=== PATIENT | female | born 1940 ===

== ENCOUNTER 2018-09-15 17:00 | Inpatient (IN) | payer MEDICARE, BC ==
[~2018-09-15] VITALS: Ht 165.1 cm; Wt 55.3 kg
--- NOTE | 2018-09-15 19:01 | NUR ---
REC'D PT FROM [facility]. ADMITTED FOR RIGHT COLON RESECTION ON 09/02/18. PT IS VERY CONFUSED. ALERT TO FIRST NAME ONLY. PT SON REGINE IS POA . WILL BRING COPY OF POA SOON POSSIBLE. PT IS DNR PER POA. CODEWORD IS KATIA. UP WITH ASSIST X 1. INCONT. AT TIMES. PT IS DIABETIC. LAST BM 09/15/18. PT USES WALKER TO AMBULATE. PT HAS MIDLINE INCISION WITH DEDRA. PT HAD 1 FOOT OF COLON REMOVED. DEDRA TO REMOVED 09/21/18. PCP IS DR. LAWS. PHARMACY IS [facility] IN [place].
[2018-09-15] MEDS ORDERED: GLIMEPIRIDE2 MG PO (19:17)
[2018-09-15] MEDS ORDERED: LANTUS SOL100 UNIT/1 SC (19:19)
[2018-09-15] MEDS ORDERED: TRAZODONE HCL150 MG PO (19:23)
[2018-09-15] MEDS ORDERED: HUMALOG 30100 UNITS/ SC (19:29)
[2018-09-15 21:27] VITALS: BP 136/65; BMI 20.3
--- NOTE | 2018-09-15 22:53 | NUR ---
RECEIVED IN DAYROOM. SITTING IN WHEELCHAIR WITH PEERS AT HER SIDE. CALM AND COOPERATIVE WITH CARE AND ASSESSMENT. NO SIGNS OF AGGRESSION. AGITATED AT TIMES. REDIRECT AND REORIENT NEEDED. RESTING IN BED WITH EYES CLOSED AT THIS TIME. CONTINUE PLAN OF CARE.
[2018-09-15 23:36] VITALS: BP 133/62
[2018-09-16 07:04] LABS: BASOPHILS 0.4 % (0-2); EOSINOPHILS 1.7 % (0-7); HEMATOCRIT 37.1 % (36.0-48.0); HEMOGLOBIN 11.9 g/dL (12-16); IMMATURE GRANULOCYTES 0.2 % (0-5); LYMPHOCYTES 22.7 % (15-50); MCH 25.8 pg (26.0-34.0); MCHC 32.1 g/dL (31.0-37.0); MCV 80.5 fL (80.0-100.0); MEAN PLATELET VOLUME 10.2 fL (7.4-10.4); MONOCYTES 7.9 % (2-11); NEUTROPHILS 67.1 % (40-80); PLATELET COUNT 379 10x3/uL (130-400); RBC 4.61 10x6/uL (4.00-5.40); RDW 18.8 % (11.5-14.5); WBC 4.8 10x3/uL (4.8-10.8)
[2018-09-16 07:25] LABS: ALBUMIN 3.2 g/dL (3.4-5.0); ANION GAP 17.7 mmol/L (8-16); BILIRUBIN - TOTAL 0.39 mg/dL (0.2-1.3); CALCIUM 9.4 mg/dL (8.5-10.1); CARBON DIOXIDE 25.5 mmol/L (21.0-32.0); CHOL - HDL RATIO 4.7 ratio (2.3-4.1); CREATININE - SERUM 1.2 mg/dL (0.6-1.3); LDL-HDL RATIO 3.1 ratio (1.5-3.5); POTASSIUM - SERUM 3.2 mmol/L (3.5-5.1); PROTEIN - SERUM 7.6 g/dL (6.4-8.2); THYROID STIMULATING HORMONE 1.69 uIU/mL (0.36-3.74)
[2018-09-16 07:50] VITALS: BP 120/54
[2018-09-16 08:43] VITALS: BMI 20.3
[2018-09-16 09:55] VITALS: Ht 165.1 cm; Wt 55.3 kg
--- NOTE | 2018-09-16 11:00 | NUR ---
REPORT RECEIVED AND CARE ASSUMMED. CALM AND COOPERATIVE WITH CARE AND ASSESSMENT. COMPLIANT WITH MEDICATIONS. FALL PRECAUTIONS MAINTAINED. WILL CONTINUE WITH PLAN OF CARE.
--- NOTE | 2018-09-16 12:00 | NUR ---
REPORT RECEIVED AND CARE ASSUMED. CALM AND COOPERATIVE WITH CARE AND ASSESSMENT. VERY CONFUSED, HAS DIFFICULTY COMMUNICATING WITH STAFF. FALL PRECAUTIONS MAINTAINED. CONTINUE PLAN OF CARE.
[2018-09-16] MEDS ORDERED: TRAZODONE HCL150 MG PO ×2 (12:48→12:51)
--- NOTE | 2018-09-16 18:00 | NUR ---
PATIENT AMBULATED WITH WALKER THW LENGTH OF DAYROOM X 2. SHE DID FAIRLY WELL.
--- NOTE | 2018-09-16 21:05 | NUR ---
RECEIVED IN PATIENT ROOM. RESTING IN BED WITH EYES OPEN. CALM AND COOPERATIVE WITH CARE AND ASSESSMENT. NO SIGNS OF AGGRESSION. REDIRECT AND REORIENT NEEDED. RESTING IN BED WITH EYES CLOSED AT THIS TIME. CONTINUE PLAN OF CARE.
[2018-09-16 22:09] VITALS: BP 110/54
[2018-09-17 06:15] LABS: VITAMIN D 25 HYDROXY 8.3 ng/mL (30.0-100.0)
[2018-09-17 07:28] LABS: RAPID PLASMA REAGIN Non Reactive (Non Reactive)
[2018-09-17 07:49] VITALS: BP 104/68
[2018-09-17 08:20] LABS: FOLATE (FOLIC ACID) - SERUM 13.4 ng/mL (>3.0)
--- NOTE | 2018-09-17 12:06 | NUR ---
VERY AGGITATED,REFUSES FINGER STICK BLOOD SUGAR.ARGUMENTIVE AND CONBATIVE.WILL NOT REDIRECT.ATIVAN 0.5MG AND HALDOL 2MG IM GIVEN PER ORDERS.REFUSED MEDS THIS AM.VERY CONFUSED AND DISORIENTED.WILL CONTINUE WITH PLAN OF CARE,MONITOR FOR CHANGES AND SAFETY.PROPELLS SELF IN WHEELCHAIR,WALKED WITH ASSIST DUE TO UNSTEADY GAIT.OBSERVED TRYING TO GET OUTSIDE DOOR OPEN.
--- NOTE | 2018-09-17 13:00 | NUR ---
HAD GOOD RESPONSE TO ATIVAN AND HALDOL.
--- NOTE | 2018-09-17 14:18 | NUR ---
Nutrition Follow Up: Chart reviewed Diet: ADA AHA PO Intake: 7% meal avg BM: 09/16/18 Labs reviewed - Glucose continues elevated Meds noted Rec changing diet to ADA. Rec consider an appetite stimulant. Will continue to honor food preferences within diet restrictions. RD following.
--- NOTE | 2018-09-17 14:48 | PSY ---
PATIENT NAME:JOANNA SIMS MEDICAL RECORD: [id number] : 44 LOCATION:ANDRÉS Russo1124 ADMISSION DATE: 09/15/18 ACCOUNT: [id number] PSYCHIATRIC EVALUATION DATE OF EVALUATION: 09/16/18 IDENTIFYING DATA: The patient is 78 years old and she is admitted to the hospital on a voluntary basis. CHIEF COMPLAINT: Confusion. HISTORY OF PRESENT ILLNESS: The patient had a colon resection 10 days ago. Since that time, she has had some postoperative confusion. She has been very agitated at times. She has actually been aggressive with the caregivers at the other hospital and they have asked that she be transferred here. On interview, the patient is severely impaired cognitively. She knows her first name, but cannot even tell me her last name. She is not providing anything in the way of useful information and is clearly impaired in a manner that looks consistent with a dementing illness. There is no knowledge of any intraoperative or postoperative event that might have accounted for this, such as stroke or hypoxia, but according to the history that I have gotten she is very different from when she was admitted for surgery 10 days ago. PAST MEDICAL HISTORY: Significant for a recent colon resection secondary to chronic constipation is my understanding rather than related to cancer or an ischemic colon or some other condition, but again I do not have all the records at this point. She also is a diabetic. She is insulin-dependent. PAST PSYCHIATRIC HISTORY: Unknown. The patient does take trazodone, but I am told that is only to assist with sleep consolidation. Apparently, she has not been diagnosed with a dementia in the past. FAMILY HISTORY: Unknown. ALLERGIES: CODEINE. CURRENT MEDICATIONS: Amaryl, insulin, trazodone. SOCIAL HISTORY: The patient is . She does have adult children who are involved with her care. There is no known history of drug or alcohol abuse. Apparently, she did function reasonably well socially and occupationally. MENTAL STATUS EXAMINATION: The patient is awake, alert and oriented to person only. Her mood is euthymic. Her affect is appropriate. Thought processes are circumstantial. Memory, concentration, and abstraction abilities are severely impaired and she denies any intent to harm herself or others as well as overt psychotic symptoms. ASSETS: Supportive family members. LIABILITIES: Limited insight. DIAGNOSTIC IMPRESSION: AXIS I: Vascular dementia. AXIS II: None. AXIS III: Status post colon resection, diabetes. AXIS IV: Moderate. AXIS V: Global assessment of functioning is 30. PLAN: At this time, the patient is admitted to the hospital secondary to confusion and aggressive behavior that is reportedly acute in onset. She is no longer taking medications that would be identified or probable culprits in a delirium. She does not look delirious and this is 10 days after she underwent general anesthesia, so it is difficult to account for this as means anything that was associated with the surgery that might be reversible. Assuming the secondhand information I have is correct, and that this is very new and very different, I am going to presume that given her diabetes that she probably had chronic white matter changes and had some microvascular event that could account for this change. At this point, I am going to continue her on her current medicine and will observe her for aggressive behavior. It is my hope that nothing need be given to address any aggression because it will not occur. I will, however, start her on a cholinesterase inhibitor to address her underlying cognitive impairment. TRANSINT:[id number] Voice Confirmation ID: [id number] DOCUMENT ID: [id number] AVINASH DELCID MD at 1448 CC: [id number] DICTATION DATE: 09/16/18 1617 DOCUMENT EXAMINER: 09/16/182012 ADM IN [facility] [address] [place] [address]
[2018-09-17 17:20] LABS: ANION GAP 16.7 mmol/L (8-16); CALCIUM 9.3 mg/dL (8.5-10.1); CARBON DIOXIDE 26.1 mmol/L (21.0-32.0); CREATININE - SERUM 1.1 mg/dL (0.6-1.3); POTASSIUM - SERUM 3.8 mmol/L (3.5-5.1)
--- NOTE | 2018-09-17 18:43 | NUR ---
REFUSED VITAMIN D .ATE ONLY A FEW BITES AT DINNER.EASILY AGGITATED.
[2018-09-17 20:00] VITALS: BP 105/55
--- NOTE | 2018-09-18 04:37 | NUR ---
B) Patient is alert and oriented to self, difficult to communicate with, defiant at times, I) Administered scheduled medications as ordered, redirected as needed, R) Mediation compliant on the third try P) Continue plan of care.
--- NOTE | 2018-09-18 07:55 | NUR ---
B) The patient is depressed, she does not look at this staff and she does not comply with her assessment. She would not sit up for me to listen to her lungs in the back. When asked if she had pain she shrugged her shoulders. When asked where she was she did not say anything she kept her eyes closed. When asked if she is depressed she did not say anything. I) Provide prescribed meds. R) The patient is stoic and flat at this time, she is not interacting with staff or her peers. P) Continue POC.
[2018-09-18 08:10] VITALS: BP 110/53
[2018-09-18 20:08] VITALS: BP 135/68
--- NOTE | 2018-09-19 02:05 | NUR ---
B) Patient is alert and oriented to self, very confused and defiant at times, I) Administered scheduled medications as ordered, redirected as needed, R) Mediation compliant, resting quietly in bed now, P) Continue plan of care.
[2018-09-19 08:01] VITALS: BP 135/56
--- NOTE | 2018-09-19 10:53 | NUR ---
B) The patient is awake, but she is sleepy this am, she did not eat breakfast, she is not drinking. She is not talking, she opened her eyes on assessment, she did slap at staff after breakfast, but she is sitting in a recliner and resting. I) Provide prescribed meds and encourage her to take her meds, offer her fluids every two hours, offer snacks. R) The patient refuses to take her meds, she just lay her head on the table and would not look up when I offered her meds, she did not hit at me, but she did not move. P) Continue POC.
--- NOTE | 2018-09-19 12:56 | PN ---
PATIENT:JOANNA SIMS MEDICAL RECORD: [id number] LOCATION:ANDRÉS KaranKailyn ADMISSION DATE: 09/15/18 PROGRESS NOTE DATE OF SERVICE: 09/17/2018 SUBJECTIVE: The patient's case was discussed with staff. She has no new complaint. OBJECTIVE: The patient is not eating well. She did sleep reasonably well last night. She has been compliant with her medications. She has pretty limited insight about her situation. ASSESSMENT: No change in diagnoses. PLAN: Brief supportive and educational interventions were made. Long-term prognosis is guarded. I am going to start the patient on Megace to assist with appetite stimulation. TRANSINT:[id number] Voice Confirmation ID: [id number] DOCUMENT ID: [id number] AVINASH DELCID MD at 1256 CC: [id number] DICTATION DATE: 09/17/18 1507 ENGINE MANAGER: 09/17/18 2109 ADM IN [place] [address] [place] [address]
--- NOTE | 2018-09-19 12:56 | PN ---
PATIENT:JOANNA SIMS MEDICAL RECORD: [id number] LOCATION:ANDRÉS Russo112 ADMISSION DATE: 09/15/18 PROGRESS NOTE DATE OF SERVICE: 09/18/2018 SUBJECTIVE: The patient's case was discussed with staff. She has no new complaint. OBJECTIVE: The patient denies intent to harm herself or others. She is clearly quite confused. ASSESSMENT: No change in diagnoses. PLAN: The patient has not been compliant with her medicines and she is not eating. Reasons for this are unknown and she is not giving me answers that are coherent. TRANSINT:[id number] Voice Confirmation ID: [id number] DOCUMENT ID: [id number] AVINASH DELCID MD at 1256 CC: [id number] DICTATION DATE: 09/18/18 164 FLAG SIGNALMAN: 09/18/18 2321 ADM IN [facility] [address] [place] [address]
[2018-09-19 18:29] LABS: BASOPHILS 0.9 % (0-2); EOSINOPHILS 0.7 % (0-7); HEMATOCRIT 37.7 % (36.0-48.0); HEMOGLOBIN 12.2 g/dL (12-16); LYMPHOCYTES 28.3 % (15-50); MCH 26.2 pg (26.0-34.0); MCHC 32.4 g/dL (31.0-37.0); MCV 80.9 fL (80.0-100.0); MEAN PLATELET VOLUME 9.9 fL (7.4-10.4); MONOCYTES 10.1 % (2-11); PLATELET COUNT 393 10x3/uL (130-400); RBC 4.66 10x6/uL (4.00-5.40); RDW 19.4 % (11.5-14.5); WBC 5.8 10x3/uL (4.8-10.8)
[2018-09-19 18:51] LABS: ALBUMIN 3.4 g/dL (3.4-5.0); ANION GAP 18.1 mmol/L (8-16); BILIRUBIN - TOTAL 0.52 mg/dL (0.2-1.3); CALCIUM 9.5 mg/dL (8.5-10.1); CARBON DIOXIDE 24.9 mmol/L (21.0-32.0); PROTEIN - SERUM 7.2 g/dL (6.4-8.2); THYROID STIMULATING HORMONE 0.54 uIU/mL (0.36-3.74)
--- NOTE | 2018-09-19 21:38 | NUR ---
PATIENT IS QUIET, STAYS TO HERSELF, COMPLIANT WITH MEDS, NO ADVERSE REACTION, WILL FOLLOW POC
[2018-09-20 04:45] VITALS: BP 130/73
--- NOTE | 2018-09-20 07:30 | NUR ---
REC'D PT IN HALLWAY WITH PEERS SITTING IN W/C. AWAKE AND ALERT TO PEROSN ONLY. PT IS CONFUSED. CALM AND COOPERATIVE WITH ASSESSMENT. REDIRECT AND REORIENT NEEDED. NO AGGRESSION NOTED. PRESCRIBED MEDS PROVIDED. NON MED COMPLIANT. FALL PRECAUTIONS IN PLACE. WILL CONTINUE TO MONITOR Q 15 MINUTES FOR SAFETY. WILL CPOC.
[2018-09-20 08:18] VITALS: BP 108/65
--- NOTE | 2018-09-20 12:21 | PN ---
PATIENT:JOANNA SIMS MEDICAL RECORD: [id number] LOCATION:ANDRÉS Russo112 ADMISSION DATE: 09/15/18 PROGRESS NOTE DATE OF SERVICE: 09/19/2018 SUBJECTIVE: The patient's case was discussed with staff. She has no new complaint. OBJECTIVE: The patient is minimally interactive and does not want to talk to me. She is in a reclining chair in the day room. I approach her from her left side, she turns her head to the right and will not answer me. I got to the other side of the chair and tried to speak with her and she does the same thing. She did shake her head or use yes or no to a couple of questions and then told me to leave her alone. I did not leave her alone and still tried to engage her in conversation, which she would not engage with me and so I did end the interview. ASSESSMENT: No change in diagnoses. PLAN: The patient is not eating, not drinking and not taking her medicines consistently. I do not know why, because she will not talk to me. I am going to order some baseline labs to check or any metabolic abnormalities that might be developing because of her restricted intake and we will make another attempt to engage her tomorrow. TRANSINT:[id number] Voice Confirmation ID: [id number] DOCUMENT ID: [id number] AVINASH DELCID MD at 1221 CC: [id number] DICTATION DATE: 09/19/18 1332 SUPERVISOR INTELLIGENCE ANALYST: 09/19/18 1350 ADM IN [place] [address] [place] [address]
--- NOTE | 2018-09-20 12:44 | PN ---
PATIENT:JOANNA SIMS MEDICAL RECORD: [id number] LOCATION:ANDRÉS Russo112 ADMISSION DATE: 09/15/18 PROGRESS NOTE DATE OF SERVICE: 09/20/2018 SUBJECTIVE: The patient's case was discussed with staff. She has no new complaint. OBJECTIVE: The patient is in good behavioral control, but very withdrawn. She is not interacting with me hardly at all and will not interact with me at all yesterday. I think she may have a fair amount of confusion going on, but despite that the attitude of resistance is really hard for me to understand and breakthrough. TRANSINT:[id number] Voice Confirmation ID: [id number] DOCUMENT ID: [id number] AVINASH DELCID MD at 1244 CC: [id number] DICTATION DATE: 09/20/18 1237 DATA INTEGRATION ARCHITECT: 09/20/18 1242 ADM IN [place] [id number] [place] [address]
[2018-09-20 21:16] VITALS: BP 130/60
--- NOTE | 2018-09-20 22:31 | NUR ---
PATIENT IS CONFUSED, QUIET STAYS TO HERSELF, REFUSED ORAL MEDICATION TONIGHT BUT TOOK HER INSULIN, WILL FOLLOW POC
[2018-09-21 08:00] VITALS: BP 132/71
--- NOTE | 2018-09-21 11:00 | NUR ---
PATIENT IS ALERT AND ORIENTED TO SELF ONLY, VERY CONFUSED AND DIFFICULT TO REDIRECT. CALM AND COOPERATIVE WITH CARE AND ASSESSMENT. NON COMPLIANT WITH MEDICATIONS. WILL CONTINUE PLAN OF CARE.
[2018-09-21 20:06] VITALS: BP 119/77
--- NOTE | 2018-09-21 21:55 | NUR ---
21 DERDA TO MIDLINE ABDOMINAL INCISION REMOVED. DEDRA INTACT. INCISION LINE APROXIMATED. NO SIGNS OF INFECTION.
--- NOTE | 2018-09-22 00:11 | NUR ---
RECEIVED IN DAYROOM. SITTING ON COUCH SOCIALZING WITH PEERS. CALM AND COOPERATIVE WITH CARE AND ASSESSMENT. NO SIGNS OF AGGRESSION. REDIRECT AND REORIENT NEEDED. RESTING IN BED WITH EYES CLOSED AT THIS TIME. CONTINUE PLAN OF CARE.
[2018-09-22 07:48] VITALS: BP 111/67
--- NOTE | 2018-09-22 10:49 | NUR ---
Nutrition Follow Up: Chart reviewed. Noted pt is refusing meals. Diet: ADA AHA PO Intake: 2% meal avg BM: 09/22/18 No new wt to assess Labs reviewed Meds noted including Megace Pt continues not meeting est nutritional needs. Will change diet to regular to encourage po intake. Rec consider PEG placement. Will honor food preferences and provide supplements prn. RD following.
--- NOTE | 2018-09-22 15:21 | PN ---
PATIENT:JOANNA SIMS MEDICAL RECORD: [id number] LOCATION:ANDRÉS Russo112 ADMISSION DATE: 09/15/18 PROGRESS NOTE DATE OF SERVICE: 09/21/2018 SUBJECTIVE: The patient's case was discussed with staff. She has no new complaint. OBJECTIVE: The patient is only intermittently compliant with medications. She will not or cannot explain why. She is not eating or drinking very well. ASSESSMENT: No change in diagnoses. PLAN: The patient's dementia is advanced. Her prognosis is guarded. TRANSINT:[id number] Voice Confirmation ID: [id number] DOCUMENT ID: [id number] AVINASH DELCID MD at 1521 CC: [id number] DICTATION DATE: 09/21/18 1615 SECRETARY: 09/21/18 1713 ADM IN [place] [id number] [place] [address]
--- NOTE | 2018-09-22 16:26 | NUR ---
PATIENT IS AWAKE AND ALERT TO SELF ONLY. SHE DOES HAVE A SMILE ON HER FACE THIS MORNING. CALM AND COOPERATIVE WITH CARE AND ASSESSMENT. REDIRECT AND REORIENT NEEDED. FALL PRECAUTIONS MAINATINED. CONTINUE PLAN OF CARE.
[2018-09-22 19:34] VITALS: BP 120/71
--- NOTE | 2018-09-22 21:35 | NUR ---
RECEIVED IN DINING ROOM. SITTING IN CHAIR AND SOCIALIZING WITH PEERS. CALM AND COOPERATIVE WITH CARE AND ASSESSMENT. NO SIGNS OF AGGRESSION. REFUSED TO TAKE ALL PM MEDICATIONS AND REFUSED FSBS. REDIRECT AND REORIENT NEEDED. ENCOURAGE MEDICATION COMPLIANCE. PATIENT CONTINUE TO REFUSED MEDS AND CONTINUED TO SIT AND SOCIALIZE WITH PEERS. CONTINUE PLAN OF CARE.
--- NOTE | 2018-09-22 22:06 | NUR ---
IN AND OUT CATH PERFORMED. ONLY TWO DROPS OF URINE RETURN.
[2018-09-23 09:47] VITALS: BP 112/68
--- NOTE | 2018-09-23 15:56 | PN ---
PATIENT:JOANNA SIMS MEDICAL RECORD: [id number] LOCATION:ANDRÉS RussoKailyn ADMISSION DATE: 09/15/18 PROGRESS NOTE DATE OF SERVICE: 09/22/2018 SUBJECTIVE: The patient's case was discussed with staff. She has no new complaint. OBJECTIVE: The patient is in good behavioral control with limited insight about her condition. She does tolerate her medicines well. She continues to be quite confused. She is not eating. She only intermittently takes her medicines, but when she does as mentioned, she tolerates them adequately. TRANSINT:[id number] Voice Confirmation ID: [id number] DOCUMENT ID: [id number] AVINASH DELCID MD at 1556 CC: [id number] DICTATION DATE: 09/22/18 1532 WATERMELON HARVESTING SUPERVISOR: 09/22/18 2216 ADM IN [place] [id number] [place] [address]
[2018-09-23 19:33] LABS: ANION GAP 23.8 mmol/L (8-16); CALCIUM 9.1 mg/dL (8.5-10.1); POTASSIUM - SERUM 4.8 mmol/L (3.5-5.1)
[2018-09-23 22:07] VITALS: BP 110/54
--- NOTE | 2018-09-23 22:38 | NUR ---
RECEIVED IN PATIENT ROOM. RESTING IN BED WITH EYES CLOSED. RESISTIVE WITH CARE AT TIMES. COOPERATIVE WITH ASSESSMENT. REFUESED ALL PM MEDICATIONS AND FSBS. REDIRECT AND REORIENT NEEDED. RESTING IN BED WITH EYES CLOSED AT THIS TIME. CONTINUE PLAN OF CARE.
[2018-09-24 09:25] VITALS: BP 92/59
--- NOTE | 2018-09-24 14:00 | PN ---
PATIENT:JOANNA SIMS MEDICAL RECORD: [id number] LOCATION:ANDRÉS HenaoBetyKailyn ADMISSION DATE: 09/15/18 PROGRESS NOTE DATE OF SERVICE: 09/23/2018 SUBJECTIVE: The patient's case was discussed with staff. She has no new complaint. OBJECTIVE: The patient denies intent to harm herself or others. She is tolerating her medicines well. ASSESSMENT: No change in diagnoses. PLAN: The patient will have her Effexor increased to 100 mg daily. Her long-term prognosis is again guarded and will be largely contingent upon her following through with outpatient treatment recommendations. At this point, she still is not eating adequately, but is taking the Megace and hopefully that will stimulate her appetite. TRANSINT:[id number] Voice Confirmation ID: [id number] DOCUMENT ID: [id number] AVINASH DELCID MD at 1400 CC: [id number] DICTATION DATE: 09/23/18 1617 AIRCRAFT DESIGN ENGINEER: 09/23/18 2230 ADM IN [place] [id number] [place] [address]
--- NOTE | 2018-09-24 15:47 | NUR ---
MARIJA MET WITH PT'S SONS, REGINE AND ABIDA, TO DISCUSS DISCHARGE PLANNING NEEDS AND DISEASE PROGRESSION. REGINE AND BELLE VOICED UNDERSTANDING OF PT'S CONDITION AND DISCHARGE DECISION IS TO SEND PT TO REHAB.
--- NOTE | 2018-09-24 18:00 | NUR ---
REFUSED MEDS THIS AM.CONSUMED ONLY A FEW BITES OF BREAKFAST AND LUNCH.DID HOWEVER EAT A LITTLE MORE AT DINNER BUT STILL DID NOT EAT MUCH.MOOD SEEMED TO BE BETTER THIS EVENING,DID NOT SEEM EASILY AGGITATED.TRIES TO COMMUNICATE VERBALLY BUT HAS TROUBLE VOICEING A COMPLETE THOUGHT.WAS ABLE TO SAY "I AM SO LONELY".ENCOURAGEMENT GIVEN.WILL CONTINUE WITH PLAN OF CARE,MONITOR FOR CHANGES AND SAFETY.
[2018-09-24 20:36] VITALS: BP 95/45
--- NOTE | 2018-09-25 01:39 | NUR ---
B) Patient is alert and oriented to self, talks in wordsalad at times, very confused and unaware. I) Administered scheduled medications whole after several tries, monitored FSBS R) Mediation compliant this shift, P) Continue plan of care.
--- NOTE | 2018-09-25 07:43 | NUR ---
B) The patient is awake and alert, she is oriented to self only. She is not showing any aggression this morning. I) Provide prescribed meds. R) The patient is calm and watchful. P) Continue POC.
[2018-09-25 09:20] VITALS: BP 111/57
--- NOTE | 2018-09-25 17:15 | PN ---
PATIENT:JOANNA SIMS MEDICAL RECORD: [id number] LOCATION:ANDRÉS Russo112 ADMISSION DATE: 09/15/18 PROGRESS NOTE DATE OF SERVICE: 09/24/2018 SUBJECTIVE: The patient's case was discussed with staff. She has no new complaint. OBJECTIVE: The patient denies intent to harm herself or others. She does tolerate her medicines well. Eye contact is fair. ASSESSMENT: No change in diagnoses. PLAN: Current medicines have been reviewed. The patient is still not eating adequately. She is only intermittently compliant with medications. TRANSINT:[id number] Voice Confirmation ID: [id number] DOCUMENT ID: [id number] AVINASH DELCID MD at 1715 CC: [id number] DICTATION DATE: 09/24/18 1421 FOUNDER / CEO: 09/24/18 1844 ADM IN [facility] [address] [place] [address]
[2018-09-25 19:31] VITALS: BP 100/50
--- NOTE | 2018-09-25 19:48 | NUR ---
PATIENT IS VERY CONFUSED, NOT ABLE TO CARRY ON A CONVERSATION, POOR EYE CONTACT, VERY BLUNTED AFFECT, SPOKE TO PATIENT AND CALLED OUT, "MS. SIMS, RAISE YOUR HAND" AND IT TOOK A MOMENT TO FOLLOW MY VOICE AND SHE PUT HER HANDS TOGETHER AND HELD EYE CONTACT MOMEMTARILY. COMPLIANT WITH MEDS. NO ADVERSE REACTION NOTED. WILL FOLLOW POC
[2018-09-26 08:12] VITALS: BP 107/60
--- NOTE | 2018-09-26 11:27 | NUR ---
B) The patient is awake, she fed herself at breakfast, she ate better by doing that and she drank all of her milk. Her abdominal incision is healing well. She remains very confused. She has not shown any aggression today. I) Provide prescribed meds. Approach in a calm manner. R) The patient did take her meds crushed in orange juice. P) Continue POC.
--- NOTE | 2018-09-26 12:03 | PN ---
PATIENT:JOANNA SIMS MEDICAL RECORD: [id number] LOCATION:ANDRÉS Russo112 ADMISSION DATE: 09/15/18 PROGRESS NOTE DATE OF SERVICE: 09/25/2018 SUBJECTIVE: The patient's case was discussed with staff. She has no new complaint. OBJECTIVE: The patient denies an intent to harm herself or others. She has started taking her medicines and has done so at 2 scheduled medication administration times consecutively. She is also eating a little better. I am very much encouraged by this development and will continue to monitor her and hopefully will be able to assist her in a more realistic way, now that she is compliant with medications. TRANSINT:[id number] Voice Confirmation ID: [id number] DOCUMENT ID: [id number] AVINASH DELCID MD at 1203 CC: [id number] DICTATION DATE: 09/25/18 1738 MANAGER SWITCH: 09/25/18 2154 ADM IN [place] [address] [place] [address]
[2018-09-26 20:22] VITALS: BP 136/68
[2018-09-27 07:00] VITALS: BP 112/67
--- NOTE | 2018-09-27 18:23 | NUR ---
VERY CONFUSED AND DISORIENTED.UNABLE TO TELL NURSE HER NAME WHEN ASKED.REFUSED BREAKFAST,LUNCH ,AND MEDS.ATE A FEW BITES AT DINNER.DIFFICULT TO REDIRECT.WILL CONTINUE WITH PLAN OF CARE,MONITOR FOR CHANGES AND SAFETY.
[2018-09-27 19:26] VITALS: BP 130/76
--- NOTE | 2018-09-27 21:41 | NUR ---
PATIENT IS VERY CONFUSED, HAVING A HARD TIME FORMING WORDS, POOR EYE CONTACT, COMPLIANT WITH MEDS ABOUT 25% OF THE TIME. PATIENT NEEDS MAXIMUM ASSISTANCE WITH ADL'S. WILL FOLLOW POC
[2018-09-28 07:00] VITALS: BP 105/75
--- NOTE | 2018-09-28 07:30 | NUR ---
REC'D PT IN HALLWAY SITTING IN RECLINING ROOM. AWAKE AND ALERT TO PERSON ONLY. CALM AND COOPERATIVE WITH ASSESSMENT. REDIRECT AND REORIENT NEEDED. PRESCRIBED MEDS PROVIDED. MED COMPLIANT. FALL PRECAUTIONS IN PLACE. NO AGGRESSION NOTED. PT STILL NOT EATING WELL. ENCOURAGED PER STAFF. FALL PRECAUTIONS IN PLACE. WILL CONTINUE TO MONITOR Q 15 MINUTES FOR SAFETY. WILL CPOC.
--- NOTE | 2018-09-28 14:45 | PN ---
PATIENT:JOANNA SMIS MEDICAL RECORD: [id number] LOCATION:SHARONDAJackie Russo112 ADMISSION DATE: 09/15/18 PROGRESS NOTE DATE OF SERVICE: 09/26/2018 SUBJECTIVE: The patient's case was discussed with staff. She has no new complaint. OBJECTIVE: The patient is in good behavioral control. She has poor insight about her situation. ASSESSMENT: No change in diagnoses. PLAN: Current medicines have been reviewed. Her Effexor will be maintained at this dose. She does look less depressed. She is certainly sleeping adequately. Unfortunately, her appetite is not improving. She has been prescribed Megace. It just simply has not been effective yet. TRANSINT:[id number] Voice Confirmation ID: [id number] DOCUMENT ID: [id number] AVINASH DELCID MD at 1445 CC: [id number] DICTATION DATE: 09/26/18 1315 DANCING TEACHER: 09/27/18 0006 ADM IN [facility] [address] [place] [address]
--- NOTE | 2018-09-28 14:45 | PN ---
PATIENT:JOANNA SIMS MEDICAL RECORD: [id number] LOCATION:ANDRÉS Russo112 ADMISSION DATE: 09/15/18 PROGRESS NOTE DATE OF SERVICE: 09/27/2018 SUBJECTIVE: The patient's case was discussed with staff. She has no new complaint. OBJECTIVE: The patient is in good behavioral control with limited insight about her condition. She tolerates her medicines well. ASSESSMENT: No change in diagnoses. PLAN: Brief supportive and educational interventions were made. Long-term prognosis is guarded. TRANSINT:[id number] Voice Confirmation ID: [id number] DOCUMENT ID: [id number] AVINASH DELCID MD at 1445 CC: [id number] DICTATION DATE: 09/27/18 1233 WORKING SECOND HAND: 09/27/18 1515 ADM IN [place] [id number]
[2018-09-28 21:16] VITALS: BP 106/48
--- NOTE | 2018-09-29 00:04 | NUR ---
RECEIVED IN PATIENT ROOM. RESTING IN BED WITH EYES CLOSED. RESPONDS TO VOICE. CALM AND COOPERATIVE WITH CARE AND ASSESSMENT. NO SIGNS OF AGGRESSION. REDIRECT AND REORIENT NEEDED. RESTING IN BED WITH EYES CLOSED AT THIS TIME. CONTINUE PLAN OF CARE.
[2018-09-29 07:00] VITALS: BP 135/81
--- NOTE | 2018-09-29 11:00 | NUR ---
REC'D PT IN HALLWAY SITTING IN RECLINING CHAIR. CALM AND COOPERATIVE WITH ASSESSMENT. PRESCRIBED MEDS PROVIDED. PT IS NONCOMPLIANT WITH MEDS. REDIRECT AND REORIENT NEEDED. PT REFUSES ALL MEDS AND B/S X 3. PT REFUSES TO FEED HERSELF OR LET STAFF ASSIST WITH FEEDING. FALL PRECAUTIONS IN PLACE. WILL CONTINUE TO MONITOR Q 15 MINUTES FOR SAFETY. WILL CPOC.
--- NOTE | 2018-09-29 13:42 | NUR ---
Pt is on a regular diet no conc sweets with 0-20% intake x3 days Pt is not eating or drinking Ensure today and is refusing BG checks Pt is on [employer] Son has tried to bring food up to the hospital and pt continues not to eat much ~3lb weight loss since admit RD following
--- NOTE | 2018-09-29 15:38 | PN ---
PATIENT:JOANNA SIMS MEDICAL RECORD: [id number] LOCATION:[facility] ADMISSION DATE: 09/15/18 PROGRESS NOTE DATE OF SERVICE: 09/28/2018 SUBJECTIVE: The patient's case was discussed with staff. She has no new complaint. OBJECTIVE: The patient denies intent to harm herself or others. She is tolerating her medicines well. ASSESSMENT: No change in diagnoses. PLAN: Brief supportive and educational interventions were made. Long-term prognosis is guarded. TRANSINT:[id number] Voice Confirmation ID: [id number] DOCUMENT ID: [id number] AVINASH DELCID MD at 1538 CC: [id number] DICTATION DATE: 09/28/18 1459 AUTOMATIC DRILL OPERATOR: 09/28/18 1857 ADM IN [place] [id number] [place] [address]
[2018-09-29 21:34] VITALS: BP 110/56
--- NOTE | 2018-09-29 23:55 | NUR ---
RECEIVED IN PATIENT ROOM. RESTING IN BED WITH EYES CLOSED. RESPONDS TO VOICE. CALM AND COOPERATIVE WITH CARE AND ASSESSMENT REFUSED PM MEDICATIONS AND FSBS. REDIRECT AND REORIENT NEEDED. RESTING IN BED WITH EYES CLOSED AT THIS TIME. CONTINUE PLAN OF CARE.
--- NOTE | 2018-09-30 08:00 | NUR ---
REC'D PT IN HALLWAY SITTING IN RECLINING CHAIR. AWAKE AND ALERT TO PERSON ONLY. PT IS VERY CONFUSED. PT CONT. TO REFUSE ALL MEDS AND GLUCOSE MONITORING. PT EDUCATED ON THE IMPORTANCE OF TAKING MEDS AND MONITORING BLOOD GLUCOSE LEVELS. PT WAS CALM AND COOPERATIVE WITH ASSESSMENT. PRESCRIBED MEDS PROVIDED. PT IS NONCOMPLIANT WITH MEDS. WILL CONTINUE TO MONITOR Q 15 MINUTES FOR SAFETY. CHELSEY VELÁSQUEZOC.
[2018-09-30 08:23] VITALS: BP 125/72
--- NOTE | 2018-09-30 13:01 | PN ---
PATIENT:JOANNA SIMS MEDICAL RECORD: [id number] LOCATION:[facility] ADMISSION DATE: 09/15/18 PROGRESS NOTE DATE OF SERVICE: 09/29/2018 SUBJECTIVE: The patient's case was discussed with staff. She has no new complaint. OBJECTIVE: The patient is not eating or drinking adequately. She is not taking her medicines consistently. She is not able to explain this, the reasons for it are uncertain. Her condition is grave. Her dementia is advanced. She does not begin eating or drinking consistently. Obviously, she is going to have a bad outcome very soon. TRANSINT:[id number] Voice Confirmation ID: [id number] DOCUMENT ID: [id number] AVINASH DELCID MD at 1301 CC: [id number] DICTATION DATE: 09/29/18 1614 COLOR FINISHER: 09/29/18 1718 ADM IN [facility] [address] [place] [address]
[2018-09-30 19:50] VITALS: BP 138/73
--- NOTE | 2018-10-01 00:35 | NUR ---
B) patient is alert and oriented to self, very confused and talks in wordsalad, difficult to redirect and communicate with her. I) offerred scheduled medications several times, monitored for safety, monitored FSBS, R) Refused all PO HS medications, allowed FSBS and insulin shots, P) Continue plan of care.
--- NOTE | 2018-10-01 13:03 | PN ---
PATIENT:JOANNA SIMS MEDICAL RECORD: [id number] LOCATION:[facility] ADMISSION DATE: 09/15/18 PROGRESS NOTE DATE OF SERVICE: 09/30/2018 SUBJECTIVE: The patient's case was discussed with staff. She has no new complaint. OBJECTIVE: The patient is in good behavioral control with limited insight about her condition. She tolerates her medicines well. ASSESSMENT: No change in diagnoses. PLAN: Brief supportive and educational interventions were made. The patient will be maintained on current medicines, which have been reviewed. Her condition is grave considering her very limited oral intake. It would appear that we are approaching the point when it is going to be a referral to hospice if something has not changed. TRANSINT:[id number] Voice Confirmation ID: [id number] DOCUMENT ID: [id number] AVINASH DELCID MD at 1303 CC: [id number] DICTATION DATE: 09/30/18 1514 BUSINESS ANALYSIS ANALYST: 10/01/18 0010 ADM IN [place] [id number] [place] [address]
[2018-10-01] MEDS ORDERED: DESERYL PO (15:44)
[2018-10-01] MEDS ORDERED: EFFEXOR50 MG PO (15:45)
[2018-10-01] MEDS ORDERED: Vitamin D PO (15:45)
[2018-10-01] MEDS ORDERED: MEGACE40 MG PO (15:45)
[2018-10-01 19:56] VITALS: BP 124/96
--- NOTE | 2018-10-02 04:17 | NUR ---
B) patient is alert and oriented to self, very confused and disoriented, talks in wordsalad, I) Administered scheduled medications as ordered, monitored for safety R) Mediation compliant with medication crushed in apple sauce and a lot of patient tries, P) Continue plan of care.
[2018-10-02 09:48] VITALS: BP 123/68
[2018-10-02 10:37] VITALS: BP 123/68
--- NOTE | 2018-10-02 10:59 | NUR ---
B) The patient is confused, she has poor insight into her situation. Staff did try to help her eat and drink and this just makes her angry and she began shaking her finger at staff. Tried to straighten her straw where she can drink milk. I) Provide prescribed meds. R) The patient has to have her meds crushed and put in juice or she will not take it. P) Continue POC.
--- NOTE | 2018-10-02 12:39 | NUR ---
The patient will d/c today at 1300. D/c order and medication list faxed to [facility].
--- NOTE | 2018-10-02 12:43 | NUR ---
Called report to Rimma [facility] [place], she says she does not think she will have the patient, but she said "I will take report and go from there."
--- NOTE | 2018-10-02 13:49 | PN ---
PATIENT:JOANNA SIMS MEDICAL RECORD: [id number] LOCATION:[facility] ADMISSION DATE: 09/15/18 PROGRESS NOTE DATE OF SERVICE: 10/01/2018 SUBJECTIVE: The patient's case was discussed with staff. She has no new complaint. OBJECTIVE: The patient actually ate 100% of her dinner yesterday. This is a remarkable improvement. I am not sure if it has been continued today. She is still not compliant with her medications, making it difficult for me to manage her behaviors, but I do not think there is anything else that can be done to improve her compliance. ASSESSMENT: No change in diagnoses. PLAN: The patient is not actively suicidal or significantly disruptive in any way. She certainly manageable in a custodial and indeed she is going to be transferred to a custodial tomorrow. Her long-term prognosis is guarded. Supportive and educational interventions were made. I anticipate a poor prognosis if she will not take medicine or eat or drink adequately. I have recommended hospice or palliative care. TRANSINT:[id number] Voice Confirmation ID: [id number] DOCUMENT ID: [id number] AVINASH DELCID MD at 1349 CC: [id number] DICTATION DATE: 10/01/18 1548 SUPERVISOR SOUND TECHNICIAN: 10/01/18 2251 ADM IN [facility] [address] [place] [address]
--- NOTE | 2018-10-02 16:50 | NUR ---
The [employer] driver courier is here to parts picker the patient. She is assisted by two to transfer to our w/c, did let them borrow the w/c and the driver courier is to bring it back. Belongings and paperwork handed to the driver courier. The patient is now d/c'd off of the unit.
--- NOTE | 2018-10-03 08:39 | PN ---
PATIENT:JOANNA SIMS MEDICAL RECORD: [id number] LOCATION:[facility] ADMISSION DATE: 09/15/18 PROGRESS NOTE DATE OF SERVICE: 10/02/2018 SUBJECTIVE: The patient's case was discussed with the staff. OBJECTIVE: The patient is tolerating her medicines well. She has not had any further paranoid thoughts. She is limited in her insight. She has severe impairment of her cognition. TRANSINT:[id number] Voice Confirmation ID: [id number] DOCUMENT ID: [id number] AVINASH DELCID MD at 0839 CC: [id number] DICTATION DATE: 10/02/18 1531 HARNESS RACING HANDICAPPER: 10/02/18 2152 DIS IN 10/02/18 [facility] [address] [place] [address]
== END 2018-10-02 16:51 | DRG 884 ==
LOC: D.PSYCH 17:00
PROVIDERS: Family Medicine; ADMIT Psychiatry & Neurology Psychiatry; ATTEND Psychiatry & Neurology Psychiatry
DX: F01.51 Vascular dementia, unspecified severity, with behavioral disturbance (principal); G45.9 Transient cerebral ischemic attack, unspecified; E11.9 Type 2 diabetes mellitus without complications; K59.09 Other constipation; E87.6 Hypokalemia; E11.22 Type 2 diabetes mellitus with diabetic chronic kidney disease; N18.9 Chronic kidney disease, unspecified; E55.9 Vitamin D deficiency, unspecified